=== PATIENT | female | born 1980 | race Caucasian/White ===

== ENCOUNTER 2017-01-19 21:53 | Emergency (ER) | payer MEDICAID, OTHER ==
--- NOTE | 2017-01-20 07:51 | RAD ---
WRIST- LEFT 3 VIEWS HISTORY: Fall with wrist pain. COMPARISONS: None. FINDINGS: 3 views of the left wrist were performed demonstrating normal bony mineralization. The visualized osseous structures remain intact. The alignment is appropriate. No focal soft tissue abnormalities are seen. IMPRESSION: 1. Negative views of the left wrist.
== END 2017-01-20 02:30 | disposition home or self-care (01) ==
LOC: ED 21:53
DX: S63.502A Unspecified sprain of left wrist, initial encounter (principal); S80.211A Abrasion, right knee, initial encounter; S80.212A Abrasion, left knee, initial encounter; S80.00XA Contusion of unspecified knee, initial encounter; W18.30XA Fall on same level, unspecified, initial encounter; Y93.01 Activity, walking, marching and hiking; Y92.9 Unspecified place or not applicable